=== PATIENT | female | born 1945 | race Caucasian/White ===

== ENCOUNTER 2022-03-18 13:39 | Outpatient (CLI) | payer OTHER, MEDICARE, SELFPAY ==
--- NOTE | 2022-03-18 14:00 | CRLHL7_ITS ---
For Patients: As a result of the Century Cures Act, medical imaging exams and procedure reports are released immediately into your electronic medical record. You may view this report before your referring provider. If you have questions, please contact your health care provider. INDICATION: Head injury. TECHNIQUE: CT of the head without contrast. Coronal and sagittal reformats are included. COMPARISON: Head CT from 08/01/2020 FINDINGS: No acute intracranial hemorrhage. No mass effect or midline shift. No hydrocephalus or extra-axial collections. Scattered white matter hypoattenuation, typical for chronic microvascular ischemic change No acute osseous abnormalities. Mastoid air cells and paranasal sinuses are clear. Normal soft tissues. IMPRESSION: IMPRESSION: 1. No acute intracranial abnormalities. Please note that all CT scans at this facility use dose modulation, iterative reconstruction, and/or weight-based dosing when appropriate to reduce radiation dose to as low as reasonably achievable. Dictated by Delbert Dawkins MD @ 03/18/2022 3:47:01 PM (Electronically Signed)
== END 2022-03-18 13:40 | disposition home or self-care (01) ==
PROVIDERS: PCP Family Medicine; Visit Provider Family Medicine
DX: S09.90XA Unspecified injury of head, initial encounter (principal); H57.04 Mydriasis
CPT/HCPCS: 70450

== ENCOUNTER 2023-01-17 17:04 | Emergency (ER) | payer MEDICARE, SELFPAY ==
[2023-01-17 17:15] VITALS: BP 164/114; PULSE 104; RESP 18; TEMP 37.1; O2SAT 96; BMI 28.3
--- NOTE | 2023-01-17 17:28 | CRLHL7_ITS ---
For Patients: As a result of the Cures Act, medical imaging exams and procedure reports are released immediately into your electronic medical record. You may view this report before your referring provider. If you have questions, please contact your health care provider. INDICATION: Trauma, right back and axillary pain. TECHNIQUE: Chest and right rib radiographs, 4 views. COMPARISON: Chest radiographs 08/01/2020. FINDINGS: Limited evaluation due to limited views of the ribs obtained. Mediastinum: Heart size and vasculature are normal in caliber and appearance. Mediastinum is within normal limits. Lungs: No focal consolidation. Pleura: No pneumothorax or pleural effusions. Bones: Detailed oblique images of the ribs demonstrate no acute fractures or bone lesions. Degenerative changes of the thoracic spine and acromioclavicular joints bilaterally. Upper Abdomen: Unremarkable. Chest wall: Surgical clips in the right axillary region. IMPRESSION: No acute displaced rib fractures. No pneumothorax. Dictated by James Florence MD @ 01/17/2023 6:39:56 PM (Electronically Signed)
--- NOTE | 2023-01-17 18:03 | ED.CHESTPAIN ---
HPI - Chest Pain General Date Seen: 01/17/23 Chief Complaint: Rib Pain Stated Complaint: Bad cough for weeks-now severe pain shoulder/chest Time Seen by Provider: 01/17/23 17:05 Source: patient and other Mode of arrival: ambulatory Limitations: no limitations History of Present Illness HPI narrative: Patient is a 77-year-old female presents here with her friend, she has a history of 24-48 hours of right-sided chest discomfort, that is associated with a coughing paroxysm, every time she coughs she gets intense pain that almost makes her want cry out. She reports that the pain initially came on with coughing. She wonders if she may have cracked a rib, she has a history of a chronic cough, that is gone on for quite some time. She is treating herself with albuterol, as she does have a history of asthma. She denies any frontal chest pain, any leg swelling, any hemoptysis, she is not tested herself for COVID at home. No past history of pulmonary emboli, coronary artery disease, or pneumothorax Related Data On Oral Contraceptives: No Home Medications Medication Instructions Recorded Confirmed diphenhydramine HCl 25 mg capsule 25 mg PO .as needed PRN 10/03/22 11/04/22 Previous Rx's Medication Instructions Recorded albuterol sulfate 90 mcg/actuation 2 puff inhalation Q4-6H PRN 05/17/22 aerosol inhaler shortness of breath or wheezing #8.5 grams metoprolol tartrate 25 mg tablet 12.5 mg (1/2 x 25 mg) PO BID #90 10/03/22 tabs lisinopril 10 mg tablet 10 mg PO QDAY #30 tabs 11/04/22 lorazepam 1 mg tablet 1 mg PO BID PRN anxiety #5 tabs 11/04/22 escitalopram oxalate 20 mg tablet 20 mg PO QDAY #90 tabs 11/18/22 Allergies Allergy/AdvReac Type Severity Reaction Status Date / Time Penicillins Allergy Intermediate Rash Verified 11/04/22 12:46 Sulfa Antibiotics Allergy Intermediate Rash Uncoded 11/04/22 12:46 Shellfish Allergy Allergy Unknown Uncoded 11/04/22 12:46 Review of Systems Status of ROS Reports: 10 or more systems reviewed and unremarkable except as noted in History and below [facility] Medical History Health care directive on file ?Z78.9 - Other specified health status (ICD-10) Wheeze ?R06.2 - Wheezing (ICD-10) Pneumonia ?J18.9 - Pneumonia, unspecified organism (ICD-10) Sinus infection ?J32.9 - Chronic sinusitis, unspecified (ICD-10) Sinus infection ?J32.9 - Chronic sinusitis, unspecified (ICD-10) History of Plaza's palsy (2011) ?Z86.69 - Personal history of other diseases of the nervous system and sense organs (ICD-10) Surgical History Status post partial hysterectomy (1971) ?Z90.711 - Acquired absence of uterus with remaining cervical stump (ICD-10) Status post carpal tunnel release ?Z98.890 - Other specified postprocedural states (ICD-10) Status post appendectomy ?Z90.49 - Acquired absence of other specified parts of digestive tract (ICD-10) History of lumpectomy of right breast (1999) ?Z98.890 - Other specified postprocedural states (ICD-10) Family History Son Coronary artery disease Brother Stroke Mother Diabetes Social History Narrative: SOCIAL HISTORY: . Lives with her daughter locally. She moved here 5 years ago from [facility]. 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 She used to work with my father at [employer] in [place] many years ago. Three children living. She lost her son recently. She is not sexually active. She exercises by walking and running 60s per week HABITS: No tobacco or recreational drug use. Rare alcohol use. FAMILY HISTORY: Son of myocardial infarction in his 50s. Brother with stroke in his 60s. Mother with diabetes. Smoking Status: Never smoker Little interest or pleasure in doing things: not at all Feeling down, depressed, or hopeless: not at all Exam Narrative Exam Narrative: She is seen with her friend in room 1, she appears to be in no distress, breathing normally and really no episodes of coughing. Her pupils are equal round reactive to light there is no scleral icterus redness there is no TMs are normal oropharynx normal her chest is good air entry bilaterally with no wheezing crackles I do not detect subcutaneous emphysema. Heart sounds no clicks murmurs or gallops, her lower legs show no swelling pitting edema negative Homans sign. Const Vital Signs, click to edit/add: Vital Signs - 24 hr 01/17/23 17:15 Temperature 98.8 F Pulse Rate [Right Pulse Oximeter] 104 H Respiratory Rate 18 Blood Pressure [Right Upper Arm] 164/114 H Pulse Oximetry 96 Oxygen Delivery Method Room Air Documenting provider has reviewed patient's vital signs: yes Course Course ED Course: Discussed with the patient her x-rays are negative I do not see any evidence of fracture pneumothorax and radiology is in agreement, initially wanted to give her some narcotic medication as the rib fracture/could still be a possibility but she declined this intervention. We talked about using something else like gabapentin and she declined this also does I we talked about using prednisone she agreed to this. I think this is reasonable and having her use Tylenol, and then follow-up with primary care I do not see any evidence on x-ray of pneumonia. Or anything worsening like this. Although I did have her consider other options. And she will come back and be seen. I do not think this is a pulmonary embolus kids the pain came on exactly when she was coughing, which is more consistent with a musculoskeletal type cause. Vital Signs Vital signs: Initial Vital Signs Temperature 98.8 F 01/17/23 17:15 Temperature Source Temporal Artery Scan 01/17/23 17:15 Pulse Rate 104 H 01/17/23 17:15 Respiratory Rate 18 01/17/23 17:15 Blood Pressure 164/114 H 01/17/23 17:15 Blood Pressure Mean 130 H 01/17/23 17:15 Blood Pressure Position Sitting 01/17/23 17:15 Pulse Oximetry 96 01/17/23 17:15 Oxygen Delivery Method Room Air 01/17/23 17:15 Vital Signs Temperature 98.8 F 01/17/23 17:15 Pulse Rate 104 H 01/17/23 17:15 Respiratory Rate 18 01/17/23 17:15 Blood Pressure 164/114 H 01/17/23 17:15 Pulse Oximetry 96 01/17/23 17:15 Oxygen Delivery Method Room Air 01/17/23 17:15 Temperature 98.8 F 01/17/23 17:15 Pulse Rate 104 H 01/17/23 17:15 Respiratory Rate 18 01/17/23 17:15 Blood Pressure 164/114 H 01/17/23 17:15 Pulse Oximetry 96 01/17/23 17:15 Oxygen Delivery Method Room Air 01/17/23 17:15 MDM - Chest Pain MDM Narrative Medical decision making narrative: During the evaluation of this patient I considered multiple differential diagnosis is. The life-threatening differential diagnosis include coronary disease/[place], pulmonary embolism, pneumothorax, pneumonia, and aortic dissection. Other differential diagnosis included but were not limited to pericarditis, myocarditis, chest wall pain, GERD, esophageal rupture, rib fracture contusion, pleurisy, as well as other etiologies. I do worry about a cracked rib, or pneumothorax we will do rib views along with a chest x-ray and I will get a COVID test. Little less worried about a pulmonary embolism given this came on with coughing, I think is more either muscular or skeletal. Medical Records Data Attestation: I reviewed the patient's medical records. Lab Data Attestation: I reviewed the patient's lab results. Labs: Lab Results 01/17/23 Range/Units 17:37 SARS-CoV-2 (PCR) Negative SARS-CoV-2 (Negative) Influenza Type A (PCR) Negative PCR FLU A (Negative) Influenza Type B (PCR) Negative PCR FLU B (Negative) RSV (PCR) Negative PCR RSV (Negative) Imaging Data Chest x-ray: Attestation: I have reviewed the pertinent imaging results. My impression: No evidence of pneumothorax, or infiltrate Radiologist's impression: Patient: GATITO GARCIA Facility:?[facility] Patient ID:?[id number] Site Patient ID:?[id number]. Site :?[id number] Study:?XRay Chest Right Ribs 2 views-01/17/2023 5:58:20 PM Ordering Physician:Panda Leyva Final Report: INDICATION: Trauma, right back and axillary pain. TECHNIQUE: Chest and right rib radiographs, 4 views. COMPARISON: Chest radiographs 08/01/2020. FINDINGS: Limited evaluation due to limited views of the ribs obtained. Mediastinum: Heart size and vasculature are normal in caliber and appearance. Mediastinum is within normal limits. Lungs: No focal consolidation. Pleura: No pneumothorax or pleural effusions. Bones: Detailed oblique images of the ribs demonstrate no acute fractures or bone lesions. Degenerative changes of the thoracic spine and acromioclavicular joints bilaterally. Upper Abdomen: Unremarkable. Chest wall: Surgical clips in the right axillary region. IMPRESSION: No acute displaced rib fractures. No pneumothorax. Dictated by James Florence MD @ 01/17/2023 6:39:56 PM (Electronic Signature) Patient: GATITO GARCIA Facility:?[facility] Patient ID:?[id number] Site Patient ID:?[id number]. Site :?[id number] Study:?XRay Chest 2 views-01/17/2023 5:57:06 PM Ordering Physician:Panda Leyva Final Report: INDICATION: Trauma, right back and axillary pain. TECHNIQUE: Chest and right rib radiographs, 4 views. COMPARISON: Chest radiographs 08/01/2020. FINDINGS: Limited evaluation due to limited views of the ribs obtained. Mediastinum: Heart size and vasculature are normal in caliber and appearance. Mediastinum is within normal limits. Lungs: No focal consolidation. Pleura: No pneumothorax or pleural effusions. Bones: Detailed oblique images of the ribs demonstrate no acute fractures or bone lesions. Degenerative changes of the thoracic spine and acromioclavicular joints bilaterally. Upper Abdomen: Unremarkable. Chest wall: Surgical clips in the right axillary region. IMPRESSION: No acute displaced rib fractures. No pneumothorax. Dictated by James Florence MD @ 01/17/2023 6:40:28 PM (Electronic Signature) Discharge Plan Discharge Clinical Impression: Cough, Chest pain Patient Disposition: Home w/ Parent or Adult Condition: Stable Instructions: Chest Pain (DC), Acute Cough (ED) Additional Instructions: As discussed with you continue the Tylenol we will try some prednisone to further help the issue with the coughing, I would like you to follow-up with Dr. Annetta hoffman early next week, no evidence of a collapsed lung, or rib fracture, but again the x-rays are little bit limited for just looking for displaced fractures. I gave you a prescription in [facility] Activity Level: Light activity Discharge Diet: Regular Prescriptions: No Action metoprolol tartrate 25 mg tablet 12.5 mg PO BID Qty: 90 1RF diphenhydramine HCl 25 mg capsule 25 mg PO .as needed PRN albuterol sulfate 90 mcg/actuation HFA aerosol inhaler 2 puff inhalation Q4-6H PRN (Reason: shortness of breath or wheezing) Qty: 8.5 0RF lorazepam 1 mg tablet 1 mg PO BID PRN (Reason: anxiety) Qty: 5 0RF lisinopril 10 mg tablet 10 mg PO QDAY Qty: 30 1RF escitalopram oxalate 20 mg tablet 20 mg PO QDAY Qty: 90 1RF Follow Up/Referrals: Jose Antonio Yancey MD [Primary Care Provider] - Stand Alone Forms: [employer] Info Instructions
[2023-01-17 18:19] LABS: PCR FLU A Negative PCR FLU A (Negative); PCR FLU B Negative PCR FLU B (Negative); PCR RSV Negative PCR RSV (Negative)
[2023-01-17 18:26] LABS: SARS PCR* Negative SARS-CoV-2 (Negative)
== END 2023-01-17 19:29 | disposition home or self-care (01) ==
PROVIDERS: Emergency Provider Family Medicine; PCP Family Medicine
DX: R07.9 Chest pain, unspecified (principal); R05.9 Cough, unspecified
CPT/HCPCS: 71046; 71100; 87631; 99284; 99285

== ENCOUNTER 2023-01-28 13:24 | Outpatient (CLI) | payer MEDICARE, SELFPAY | END 2023-01-28 13:25 | disposition home or self-care (01) | LOC: NFLDREF 13:25 | PROVIDERS: PCP Family Medicine; Visit Provider Family Medicine | DX: I10 Essential (primary) hypertension (principal) | CPT/HCPCS: 80048 ==

== ENCOUNTER 2023-12-31 13:20 | Outpatient (CLI) | payer MEDICARE, SELFPAY ==
--- OUTSIDE RECORDS SUMMARY | 2024-01-03 18:43 | XMS_ITS | Clinical Summary ---
Author Organization [employer] [facility] Address [place], [place] [address] Care Team Providers Care Maintenance And Operations Supervisor Name Role Phone Clinic, No Pcp Or Primary Care Provider Unavaila ble Social History Tobacco Use Types Packs/Day Years Used Date Smoking Tobacco: Never Assessed Sex and Gender Information Value Date Recorded Sex Assigned at Not on file Gender Identity Not on file Sexual Orientation Not on file Plan of Treatment Not on file Care Teams Maintenance And Operations Supervisor Relationship Specialty Start Date End Date Clinic, No Pcp Or . PCP - General 06/27/20
== END 2023-12-31 13:21 | disposition home or self-care (01) ==
LOC: AMB 01-03 18:42
PROVIDERS: PCP Family Medicine; Visit Provider Family Medicine
DX: R55 Syncope and collapse (principal); R53.1 Weakness
CPT/HCPCS: A0425; A0427

== ENCOUNTER 2023-12-31 13:52 | Emergency (ER) | payer MEDICARE, SELFPAY ==
[2023-12-31 13:58] VITALS: BP 160/121; PULSE 102; RESP 16; TEMP 36.8; O2SAT 100; BMI 27.4
--- NOTE | 2023-12-31 14:02 | ED.GENADULT ---
HPI - General Adult General Chief complaint: Weakness Stated complaint: Weakness, Fall Time Seen by Provider: 12/31/23 13:56 History of Present Illness HPI narrative: Patient is an 78 year white female with history of weakness when she tried to get up today. She reports that she has had a cold and runny nose and slight cough today. She has had no fever or rigors. She was feeling cold today. Denies rigors. Has had no chest pain, does not feel short of breath. She has had a history of reactive airway disease generalized anxiety and she feels ?help this is in a panic attack?. She does report some numbness feeling behind her arms bilaterally and legs bilaterally but that is gotten little better. She has a history of hypertension. No leg swelling or edema. The patient reports that when she got up she felt weak and had to kneel down. She an ambulance was called she was brought in by ambulance. Related Data Home Medications ?Medication ?Instructions ?Recorded ?Confirmed diphenhydramine HCl 25 mg capsule 25 mg PO .as needed PRN 10/03/22 01/28/23 Previous Rx's ?Medication ?Instructions ?Recorded escitalopram oxalate 20 mg tablet 20 mg PO QDAY #90 tabs 11/18/22 albuterol sulfate 90 mcg/actuation 2 puff inhalation Q4-6H PRN 01/28/23 aerosol inhaler shortness of breath or wheezing #8.5 grams lisinopril 10 mg tablet 10 mg PO QDAY #90 tabs 01/28/23 Allergies Allergy/AdvReac Type Severity Reaction Status Date / Time Penicillins Allergy Intermediate Rash Verified 12/31/23 13:57 Sulfa Antibiotics Allergy Intermediate Rash Uncoded 01/28/23 12:47 Shellfish Allergy Allergy Unknown Uncoded 01/28/23 12:47 Review of Systems Status of ROS: Reports: 6 or more systems reviewed and unremarkable except as noted in History and below [facility] Medical History Health care directive on file ?Z78.9 - Other specified health status (ICD-10) Wheeze ?R06.2 - Wheezing (ICD-10) Pneumonia ?J18.9 - Pneumonia, unspecified organism (ICD-10) Sinus infection ?J32.9 - Chronic sinusitis, unspecified (ICD-10) Sinus infection ?J32.9 - Chronic sinusitis, unspecified (ICD-10) History of Plaza's palsy (2012) ?Z86.69 - Personal history of other diseases of the nervous system and sense organs (ICD-10) Surgical History Status post partial hysterectomy (1971) ?Z90.711 - Acquired absence of uterus with remaining cervical stump (ICD-10) Status post carpal tunnel release ?Z98.890 - Other specified postprocedural states (ICD-10) Status post appendectomy ?Z90.49 - Acquired absence of other specified parts of digestive tract (ICD-10) History of lumpectomy of right breast (1999) ?Z98.890 - Other specified postprocedural states (ICD-10) Family History Son Coronary artery disease Brother Stroke Mother Diabetes Social History Narrative: SOCIAL HISTORY: . Lives with her daughter locally. She moved here 5 years ago from [facility]. 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 She used to work with my father at [employer] in [place] many years ago. Three children living. She lost her son recently. She is not sexually active. She exercises by walking and running 60s per week HABITS: No tobacco or recreational drug use. Rare alcohol use. FAMILY HISTORY: Son of myocardial infarction in his 50s. Brother with stroke in his 60s. Mother with diabetes. Smoking Status: Never smoker How often do you have a drink containing alcohol: never AUDIT-C Alcohol total score: 0 Non-prescribed substance use: denies use Little interest or pleasure in doing things: not at all Feeling down, depressed, or hopeless: not at all Exam Narrative: Exam Narrative: Objective: Patient is alert orient x3 no facial asymmetry Mouth slightly dry neck is supple chest is clear no rales or wheezing heart rhythm regular without murmur abdomen benign soft extremities are no edema neurologic nonfocal good peripheral perfusion noted. Const: Vital Signs, click to edit/add: Vital Signs - 24 hr 12/31/23 13:58 12/31/23 14:18 12/31/23 14:30 Temperature 98.2 F Pulse Rate 101 H 101 H Pulse Rate [Pulse Oximeter] 102 H Respiratory Rate 16 Blood Pressure [Le ft Upper Arm] 160/121 H Pulse Oximetry 100 100 99 Oxygen Delivery Me thod Room Air 12/31/23 14:45 12/31/23 15:00 12/31/23 15:15 Temperature Pulse Rate 102 H 98 102 H Pulse Rate [Pulse Oximeter] Respiratory Rate Blood Pressure [Le ft Upper Arm] Pulse Oximetry 99 100 99 Oxygen Delivery Me thod Course Vital Signs Vital signs: Initial Vital Signs Temperature 98.2 F 12/31/23 13:58 Temperature Source Temporal Artery Scan 12/31/23 13:58 Pulse Rate 102 H 12/31/23 13:58 Respiratory Rate 16 12/31/23 13:58 Blood Pressure 160/121 H 12/31/23 13:58 Blood Pressure Mean 134 H 12/31/23 13:58 Blood Pressure Position High-Fowlers 12/31/23 13:58 Pulse Oximetry 100 12/31/23 13:58 Oxygen Delivery Method Room Air 12/31/23 13:58 Vital Signs Temperature 98.2 F 12/31/23 13:58 Pulse Rate 102 H 12/31/23 13:58 Respiratory Rate 16 12/31/23 13:58 Blood Pressure 160/121 H 12/31/23 13:58 Pulse Oximetry 100 12/31/23 13:58 Oxygen Delivery Method Room Air 12/31/23 13:58 Temperature 98.2 F 12/31/23 13:58 Pulse Rate 102 H 12/31/23 15:15 Respiratory Rate 16 12/31/23 13:58 Blood Pressure 160/121 H 12/31/23 13:58 Pulse Oximetry 99 12/31/23 15:15 Oxygen Delivery Method Room Air 12/31/23 13:58 Medications Administered Medications: Discontinued Medications Generic Name Dose Route Start Last Admin Trade Name Freq PRN Reason Stop Dose Admin Sodium Chloride 500 mls @ 500 mls/hr 12/31/23 14:01 12/31/23 14:50 0.9 % Sodium Chloride 500 Ml IV 12/31/23 15:00 Infused .Q1H ONE Infusion Lorazepam 0.5 mg 12/31/23 15:06 12/31/23 15:14 Lorazepam 0.5 Mg Tablet PO 12/31/23 15:07 0.5 mg ONCE ONE Administration Medical Decision Making [facility] Narrative Medical decision making narrative: [age] year white female with a weakness episode, she had some bilateral arm and leg numbness, this certainly could be consistent with a panic type syndrome. But she has also had some upper respiratory symptoms. Looks like she had has had a history of pneumonia from her chart review. I think in a chest x-ray lab studies. Giving her IV fluid be appropriate. Will check an EKG and a point of care troponin. Must check urinalysis. Disposition pending findings above. Differential diagnosis of her symptoms would be just generalized weakness due to a viral infection, rule out pneumonia, rule out electrolyte imbalance. Rule out dehydration. Patient will get the above-mentioned studies disposition pending her clinical response. Will also check viral studies. Addendum 3:10 p.m.: The patient's EKG shows sinus tachycardia no acute ST T wave changes ventricular rate 103 beats per minute no change from 2020 EKG by my read. Patient has a chest x-ray by my read looks unremarkable. White count of 7880, hemoglobin 11.9, electrolyte profile negative, CRP less than 0.5, viral studies all negative. Point of care troponin negative. Urinalysis pending. Patient feels better after drive after some IV fluid. Will get her some oral fluid and she would like a little something for anxiety and will give her 0.5 mg Ativan orally, then will do a road test if she is doing well she could proceed home likely has a mild viral illness and certainly that can contribute to some her symptomology. She has no focal neurologic findings or stroke-like symptoms. Addendum 3:39 p.m.: The patient is able to walk without difficulty over she is having some tenderness to touch in her lateral aspect of her thigh on the right she has no back pain, I did a straight leg raise and that is unremarkable, she has no swelling in her leg consistent with a DVT. At this point would recommend ice Advil and time symptomatic management observation she was comfortable this as was the family they can stay and help her at her home, update her regular doctor next couple of days, return as needed Lab Data Labs: Lab Results 12/31/23 12/31/23 12/31/23 Range/Units 14:02 14:16 14:33 WBC 7.88 (4.50-11.00) K/uL RBC 4.14 (4.00-5.20) m/uL Hgb 11.9 L (12.0-16.0) gm/dL Hct 37.0 (33.0-51.0) % MCV 89 (80-100) fL MCH 29 (26-34) pg MCHC 32 (32-36) gm/dL RDW Coeff of Adrian 13.4 (11.5-15.5) % Plt Count 189 (140-440) K/uL Neut % (Auto) 63.7 (42.0-72.0) % Lymph % (Auto) 25.4 (20-44) % [place] % (Auto) 7.5 (0.0-11.0) % Eos % (Auto) 2.0 (0.0-7.0) % Baso % (Auto) 0.6 (0.0-3.0) % Neut # (Auto) 5.02 (1.7-7.0) K/uL Lymph # (Auto) 2.00 (0.90-2.90) K/uL [place] # (Auto) 0.60 (0.00-0.90) K/UL Eos # (Auto) 0.16 (0.00-0.50) K/uL Baso # (Auto) 0.05 (0.00-0.30) K/uL Abs Immat Gran (auto) 0.06 (0.00-0.30) K/uL Imm/Tot Granulo (auto) 0.8 % Sodium 140 (135-149) mmol/L Potassium 4.1 (3.6-5.1) mmol/L Chloride 110 (96-114) mmol/L Carbon Dioxide 22 (20-32) mmol/L Anion Gap 8 (7-15) mEq/L BUN 16 (7-30) mg/dL Creatinine 0.8 (0.5-1.5) mg/dL Estimated Creat Clear 33.86 Estimated GFR 74 ml/min Glucose 91 (60-115) mg/dL Lactate 1.7 (0.5-1.9) mmol/L Calcium 9.3 (8.4-10.6) mg/dL Total Bilirubin 0.5 (0.1-1.5) mg/dL Direct Bilirubin 0.2 (0.0-0.5) mg/dL AST 26 (12-35) U/L ALT 14 (4-35) U/L Alkaline Phosphatase 94 (40-150) U/L C-Reactive Protein < 0.5 L (0.5-1.0) mg/dL Total Protein 7.5 (6.0-8.3) g/dL Albumin 4.2 (3.3-5.0) g/dL Urine Color (Yellow) Urine Appearance (Clear) Urine pH (5.0-8.5) Ur Specific Tamiment (1.000-1.030) Urine Protein (Negative) Urine Glucose (UA) (Negative) Urine Ketones (Negative) Urine Blood (Negative) Urine Nitrite (Negative) Urine Bilirubin (Negative) Urine Urobilinogen (0.2-1.0) Ur Leukocyte Esterase (Negative) SARS-CoV-2 (PCR) Negative SARS-CoV-2 (Negative) Influenza Type A (PCR) Negative PCR FLU A (Negative) Influenza Type B (PCR) Negative PCR FLU B (Negative) RSV (PCR) Negative PCR RSV (Negative) POC Troponin I 0.00 L (0.01-0.04) ng/ml 12/31/23 Range/Units 14:44 WBC (4.50-11.00) K/uL RBC (4.00-5.20) m/uL Hgb (12.0-16.0) gm/dL Hct (33.0-51.0) % MCV (80-100) fL MCH (26-34) pg MCHC (32-36) gm/dL RDW Coeff of Adrian (11.5-15.5) % Plt Count (140-440) K/uL Neut % (Auto) (42.0-72.0) % Lymph % (Auto) (20-44) % [place] % (Auto) (0.0-11.0) % Eos % (Auto) (0.0-7.0) % Baso % (Auto) (0.0-3.0) % Neut # (Auto) (1.7-7.0) K/uL Lymph # (Auto) (0.90-2.90) K/uL [place] # (Auto) (0.00-0.90) K/UL Eos # (Auto) (0.00-0.50) K/uL Baso # (Auto) (0.00-0.30) K/uL Abs Immat Gran (auto) (0.00-0.30) K/uL Imm/Tot Granulo (auto) % Sodium (135-149) mmol/L Potassium (3.6-5.1) mmol/L Chloride (96-114) mmol/L Carbon Dioxide (20-32) mmol/L Anion Gap (7-15) mEq/L BUN (7-30) mg/dL Creatinine (0.5-1.5) mg/dL Estimated Creat Clear Estimated GFR ml/min Glucose (60-115) mg/dL Lactate (0.5-1.9) mmol/L Calcium (8.4-10.6) mg/dL Total Bilirubin (0.1-1.5) mg/dL Direct Bilirubin (0.0-0.5) mg/dL AST (12-35) U/L ALT (4-35) U/L Alkaline Phosphatase (40-150) U/L C-Reactive Protein (0.5-1.0) mg/dL Total Protein (6.0-8.3) g/dL Albumin (3.3-5.0) g/dL Urine Color Yellow (Yellow) Urine Appearance Clear (Clear) Urine pH 7.0 (5.0-8.5) Ur Specific Tamiment 1.015 (1.000-1.030) Urine Protein Negative (Negative) Urine Glucose (UA) Negative (Negative) Urine Ketones Negative (Negative) Urine Blood Negative (Negative) Urine Nitrite Negative (Negative) Urine Bilirubin Negative (Negative) Urine Urobilinogen 0.2 (0.2-1.0) Ur Leukocyte Esterase Negative (Negative) SARS-CoV-2 (PCR) (Negative) Influenza Type A (PCR) (Negative) Influenza Type B (PCR) (Negative) RSV (PCR) (Negative) POC Troponin I (0.01-0.04) ng/ml Discharge Plan Discharge Clinical Impression: Weakness, Acute viral syndrome, Acute thigh pain Patient Disposition: Home w/ Parent or Adult Condition: Improved Additional Instructions: Light activity, fluids, Tylenol as needed, recheck with regular doctor next 3-5 days, return to ED sooner problems concerns or worsening. Recommend Advil and Tylenol as needed for discomfort ice to the area the right lateral thigh that is been tender now at discharge. Return if problems or concerns. Activity Level: Light activity Discharge Diet: Regular Prescriptions: No Action diphenhydramine HCl 25 mg capsule 25 mg PO .as needed PRN albuterol sulfate 90 mcg/actuation HFA aerosol inhaler 2 puff inhalation Q4-6H PRN (Reason: shortness of breath or wheezing) Qty: 8.5 0RF lisinopril 10 mg tablet 10 mg PO QDAY Qty: 90 3RF escitalopram oxalate 20 mg tablet 20 mg PO QDAY Qty: 90 1RF Follow Up/Referrals: Jose Antonio Yancey MD [Primary Care Provider] - Stand Alone Forms: [facility] Info Instructions
--- NOTE | 2023-12-31 14:03 | CRLHL7_ITS ---
For Patients: As a result of the Century Cures Act, medical imaging exams and procedure reports are released immediately into your electronic medical record. You may view this report before your referring provider. If you have questions, please contact your health care provider. INDICATION: Cough TECHNIQUE: Chest 1 views. COMPARISON: 01/17/2023 FINDINGS: Cardiovasculature and mediastinum: Heart size is normal. Unremarkable mediastinum. Lungs and pleural spaces: Mildly increased peripheral interstitial linear opacities. No sign of pleural effusion. No pneumothorax. Bones and soft tissues: No significant findings. IMPRESSION: Mildly increased peripheral interstitial linear opacities, which may indicate mild pulmonary edema. Dictated by Reina Johnson MD @ 12/31/2023 2:56:25 PM (Electronically Signed)
[2023-12-31] MEDS: 0.9 % SODIUM CHLORIDE 500 ML 500 ML IV (14:10)
[2023-12-31 14:18] VITALS: PULSE 101; O2SAT 100
[2023-12-31 14:30] VITALS: PULSE 101; O2SAT 99
[2023-12-31 14:35] LABS: Basophils Absolute Auto 0.05 K/uL (0.00-0.30); Basophils Percent Auto 0.6 % (0.0-3.0); Eosinophils Absolute Auto 0.16 K/uL (0.00-0.50); Hemoglobin* 11.9 gm/dL (12.0-16.0); Immature Granulocytes Abs Auto 0.06 K/uL (0.00-0.30); Immature Granulocytes Pct Auto 0.8 %; Lymphocytes Percent Auto 25.4 % (20-44); Mean Corpuscular HGB Conc 32 gm/dL (32-36); Mean Corpuscular Hemoglobin 29 pg (26-34); Mean Corpuscular Volume 89 fL (80-100); Monocytes Percent Auto 7.5 % (0.0-11.0); Neutrophils Absolute Auto 5.02 K/uL (1.7-7.0); Neutrophils Percent Auto 63.7 % (42.0-72.0); Platelet Count* 189 K/uL (140-440); RDW Coefficient of Variation % 13.4 % (11.5-15.5); Red Blood Count 4.14 m/uL (4.00-5.20); White Blood Count* 7.88 K/uL (4.50-11.00)
[2023-12-31 14:36] LABS: Lactate* 1.7 mmol/L (0.5-1.9)
[2023-12-31 14:41] LABS: Slide Review Reflex No
[2023-12-31 14:45] VITALS: PULSE 102; O2SAT 99
--- OUTSIDE RECORDS SUMMARY | 2023-12-31 14:53 | XMS_ITS | Clinical Summary ---
Author Organization [employer] [facility] Address [place], [place] [address] Care Team Providers Care Slot Machine Department Floorperson Name Role Phone Clinic, No Pcp Or Primary Care Provider Unavaila ble Social History Tobacco Use Types Packs/Day Years Used Date Smoking Tobacco: Never Assessed Sex and Gender Information Value Date Recorded Sex Assigned at Not on file Gender Identity Not on file Sexual Orientation Not on file Plan of Treatment Not on file Care Teams Slot Machine Department Floorperson Relationship Specialty Start Date End Date Clinic, No Pcp Or . PCP - General 06/27/20
[2023-12-31 14:55] LABS: PCR FLU A Negative PCR FLU A (Negative); PCR FLU B Negative PCR FLU B (Negative); PCR RSV Negative PCR RSV (Negative); SARS PCR* Negative SARS-CoV-2 (Negative)
[2023-12-31 14:55] LABS: Chloride* 110 mmol/L (96-114); Sodium* 140 mmol/L (135-149)
[2023-12-31 14:56] LABS: Potassium* 4.1 mmol/L (3.6-5.1)
[2023-12-31 14:57] LABS: Albumin* 4.2 g/dL (3.3-5.0)
[2023-12-31 14:58] LABS: Creatinine* 0.8 mg/dL (0.5-1.5); Est. Creatinine Clearance* 33.86; Estimated Glomerular Filt Rate 74 ml/min
[2023-12-31 14:59] LABS: Anion Gap 8 mEq/L (7-15); Blood Urea Nitrogen* 16 mg/dL (7-30); Calcium* 9.3 mg/dL (8.4-10.6); Carbon Dioxide* 22 mmol/L (20-32); Glucose* 91 mg/dL (60-115); Total Protein* 7.5 g/dL (6.0-8.3)
[2023-12-31 15:00] VITALS: PULSE 98; O2SAT 100
[2023-12-31 15:00] LABS: Alanine Aminotransferase* 14 U/L (4-35); Alkaline Phosphatase* 94 U/L (40-150); Aspartate Amino Transferase* 26 U/L (12-35); Bilirubin Direct* 0.2 mg/dL (0.0-0.5); Bilirubin Total* 0.5 mg/dL (0.1-1.5)
[2023-12-31 15:02] LABS: C Reactive Protein* < 0.5 mg/dL (0.5-1.0)
[2023-12-31 15:12] LABS: Appearance Urine Clear (Clear); Bilirubin Urine Negative (Negative); Blood Urine Negative (Negative); Color Urine Yellow (Yellow); Glucose Urine Negative (Negative); Ketones Urine Negative (Negative); Leukocyte Esterase Urine Negative (Negative); Nitrite Urine Negative (Negative); Protein Urine Negative (Negative); Specific Gravity Urine 1.015 (1.000-1.030); Urobilinogen Urine 0.2 (0.2-1.0)
[2023-12-31] MEDS: LORazepam 0.5 MG TABLET PO (15:14)
[2023-12-31 15:15] VITALS: PULSE 102; O2SAT 99
[2023-12-31 15:46] LABS: RBC Urine 0-2 (0-2); Squamous Epithelial Cell Urine Few (None-Few); WBC Urine 0-2 (0-5)
== END 2023-12-31 15:49 | disposition home or self-care (01) ==
PROVIDERS: Emergency Provider Family Medicine; PCP Family Medicine
DX: R53.1 Weakness (principal); B34.9 Viral infection, unspecified; M79.651 Pain in right thigh
CPT/HCPCS: 36415; 71045; 80048; 80076; 81001; 83605; 84484; 85025; 86140; 87086; 87631; 93005; 94761; 99284; 99285; A9270; J7030

== ENCOUNTER 2024-01-12 05:46 | Emergency (ER) | payer MEDICARE, SELFPAY ==
[2024-01-12] VITALS (8 sets, daily range): BP systolic 176–214; BP diastolic 93–104; PULSE 79–95; RESP 20; TEMP 36.7; O2SAT 97–100; BMI 27.4
--- NOTE | 2024-01-12 06:07 | CRLHL7_ITS ---
For Patients: As a result of the Century Cures Act, medical imaging exams and procedure reports are released immediately into your electronic medical record. You may view this report before your referring provider. If you have questions, please contact your health care provider. INDICATION: Dental abscess TECHNIQUE: CT maxillofacial without contrast. COMPARISON: None FINDINGS: The patient is status post multiple dental fillings with multiple missing teeth. At the level of where tooth 3 would normally be there is a defect in the maxilla with trace fluid and mostly air (series 6, image 95). However, no periodontal fluid collections identified. No significant hyperenhancement within the adjacent tissues. Orbits are unremarkable. Mild mucosal thickening within the paranasal sinuses. Parotid and submandibular glands within normal limits although there is some motion at the level of the submandibular glands limiting evaluation. Prominent atherosclerotic calcification is present. Parapharyngeal space is grossly unremarkable. IMPRESSION: Defect at the position of tooth 3 which can represent recent extraction although the differential would include a small residual apical abscess. No subcutaneous/soft tissue abscess seen. Please note that all CT scans at this facility use dose modulation, iterative reconstruction, and/or weight-based dosing when appropriate to reduce radiation dose to as low as reasonably achievable. Dictated by Mao Pretty MD @ 01/12/2024 7:23:22 AM (Electronically Signed)
--- NOTE | 2024-01-12 06:07 | CRLHL7_ITS ---
For Patients: As a result of the Century Cures Act, medical imaging exams and procedure reports are released immediately into your electronic medical record. You may view this report before your referring provider. If you have questions, please contact your health care provider. INDICATION: Dental abscess TECHNIQUE: CT head without contrast. COMPARISON: Head CT 03/18/2022 FINDINGS: CSF spaces: Within normal limits for age. Brain parenchyma: The yañez-white differentiation is normal. No sign of mass, hemorrhage, or midline shift. Skull base and calvarium: The visualized paranasal sinuses and mastoid air cells demonstrate no acute or significant findings. The visualized orbits are grossly unremarkable. No skull fractures. Atherosclerosis. IMPRESSION: Unremarkable noncontrast head CT. Please note that all CT scans at this facility use dose modulation, iterative reconstruction, and/or weight-based dosing when appropriate to reduce radiation dose to as low as reasonably achievable. Dictated by Mao Pretty MD @ 01/12/2024 7:16:50 AM (Electronically Signed)
[2024-01-12] MEDS: ONDANSETRON 2 MG/ML inj 4 MG IVP (06:17)
[2024-01-12] MEDS: 0.9 % SODIUM CHLORIDE 500 ML 500 ML IV (06:17)
[2024-01-12] MEDS: MECLIZINE HCL 25 MG TABLET PO (06:17)
--- OUTSIDE RECORDS SUMMARY | 2024-01-12 06:18 | XMS_ITS | Clinical Summary ---
Author Organization [facility] Address [place], [place] [address] Care Team Providers Care Site Director Name Role Phone Clinic, No Pcp Or Primary Care Provider Unavaila ble Social History Tobacco Use Types Packs/Day Years Used Date Smoking Tobacco: Never Assessed Sex and Gender Information Value Date Recorded Sex Assigned at Not on file Gender Identity Not on file Sexual Orientation Not on file Plan of Treatment Not on file Care Teams Site Director Relationship Specialty Start Date End Date Clinic, No Pcp Or . PCP - General 06/27/20
[2024-01-12 06:23] LABS: Lactate* 1.5 mmol/L (0.5-1.9)
[2024-01-12 06:24] LABS: Basophils Absolute Auto 0.06 K/uL (0.00-0.30); Basophils Percent Auto 0.7 % (0.0-3.0); Eosinophils Absolute Auto 0.43 K/uL (0.00-0.50); Eosinophils Percent Auto 5.3 % (0.0-7.0); Hematocrit 38.6 % (33.0-51.0); Hemoglobin* 12.8 gm/dL (12.0-16.0); Immature Granulocytes Abs Auto 0.02 K/uL (0.00-0.30); Immature Granulocytes Pct Auto 0.2 %; Lymphocytes Percent Auto 18.7 % (20-44); Mean Corpuscular HGB Conc 33 gm/dL (32-36); Mean Corpuscular Hemoglobin 29 pg (26-34); Mean Corpuscular Volume 87 fL (80-100); Monocytes Percent Auto 9.2 % (0.0-11.0); Neutrophils Absolute Auto 5.39 K/uL (1.7-7.0); Neutrophils Percent Auto 65.9 % (42.0-72.0); Platelet Count* 232 K/uL (140-440); RDW Coefficient of Variation % 13.3 % (11.5-15.5); Red Blood Count 4.44 m/uL (4.00-5.20); White Blood Count* 8.18 K/uL (4.50-11.00)
[2024-01-12 06:26] LABS: Slide Review Reflex No
[2024-01-12 06:37] LABS: Albumin* 4.6 g/dL (3.3-5.0); Chloride* 106 mmol/L (96-114); Sodium* 140 mmol/L (135-149)
[2024-01-12 06:38] LABS: Potassium* 4.2 mmol/L (3.6-5.1)
[2024-01-12 06:40] LABS: Alkaline Phosphatase* 101 U/L (40-150); Anion Gap 8 mEq/L (7-15); Aspartate Amino Transferase* 37 U/L (12-35); Bilirubin Total* 0.4 mg/dL (0.1-1.5); Carbon Dioxide* 26 mmol/L (20-32); Creatinine* 0.8 mg/dL (0.5-1.5); Est. Creatinine Clearance* 33.86; Estimated Glomerular Filt Rate 74 ml/min; Total Protein* 8.3 g/dL (6.0-8.3)
[2024-01-12 06:41] LABS: Alanine Aminotransferase* 24 U/L (4-35); Blood Urea Nitrogen* 14 mg/dL (7-30); Calcium* 9.8 mg/dL (8.4-10.6); Glucose* 113 mg/dL (60-115)
--- NOTE | 2024-01-12 06:41 | ED.GENADULT ---
HPI - General Adult General Chief complaint: Dizziness/Vertigo Stated complaint: Body aches, nausea, weakness Time Seen by Provider: 01/12/24 05:58 Source: patient and family Mode of arrival: ambulatory Limitations: no limitations History of Present Illness HPI narrative: 6-year-old female presents the emergency department for evaluation of generalized weakness, body aches and feeling of dizziness. Woke up nauseated this morning at about 5:00 a.m.. No fever, no trauma or injury. She reports that she is currently being treated for a dental abscess and has been on antibiotics for the past 4 days. Reports oral pain secondary to the dental issue and has to eat soft foods but is still eating and drinking normally per her report. No new trauma or injury, no fall. The dizziness is difficult for her to classify. When I ask if it is vertigo like in nature, lightheadedness like in nature, fatigue or weakness, she has a lot of difficulty describing this to me. She does admit to some anxiety and wonders if that is a component of her symptoms. She did not try taking any medication to help with the dizziness. She took 2 aspirin and 2 Benadryl last night. Has not had any vomiting. Has not followed up with her primary care provider since her last ED visit 12 days ago. Those notes are reviewed. Extensive normal workup noted. No rashes, no dysuria, other than the tooth, lung no localizing symptoms of infection. She has not noticed any new drainage. The tooth area in question is the right 1st molar lower area. She has not take any blood thinners, she does not have a history of pulmonary emboli. Reports that her blood pressure medication was increased a couple of weeks ago from 10 mg to 20 mg. Denies any other recent changes. Past medical history notable for anxiety and hypertension. Only home medication is lisinopril 20 mg once daily. Nonsmoker, no other pertinent social history. Prior notes are reviewed. ROS is notable for the generalized symptoms as above including dizziness, URI, body aches, fatigue and weakness. Also positive for GI symptoms now with nausea, questionable neurological changes with the dizziness but more lightheaded than vertigo in nature. No visual changes. Related Data Home Medications ?Medication ?Instructions ?Recorded ?Confirmed clindamycin HCl 300 mg capsule 300 mg PO QID 01/12/24 01/12/24 lisinopril 10 mg tablet 10 mg PO DAILY 01/12/24 01/12/24 Previous Rx's ?Medication ?Instructions ?Recorded albuterol sulfate 90 mcg/actuation 2 puff inhalation Q4-6H PRN 01/05/24 aerosol inhaler shortness of breath or wheezing #8.5 grams meclizine 25 mg tablet 12.5 - 25 mg (0.5 - 1 x 25 mg) PO 01/12/24 BID PRN #10 tabs ondansetron 4 mg disintegrating 4 mg PO TID PRN nausea and 01/12/24 tablet vomiting #10 tabs Allergies Allergy/AdvReac Type Severity Reaction Status Date / Time Penicillins Allergy Intermediate Rash Verified 01/12/24 05:58 Sulfa (Sulfonamide Allergy Mild Hives Verified 01/12/24 05:58 Antibiotics) Shellfish Allergy Allergy Unknown Uncoded 01/05/24 13:50 [facility] Medical History Benign paroxysmal vertigo ?H81.10 - Benign paroxysmal vertigo, unspecified ear (ICD-10) Health care directive on file ?Z78.9 - Other specified health status (ICD-10) Wheeze ?R06.2 - Wheezing (ICD-10) Pneumonia ?J18.9 - Pneumonia, unspecified organism (ICD-10) Sinus infection ?J32.9 - Chronic sinusitis, unspecified (ICD-10) Sinus infection ?J32.9 - Chronic sinusitis, unspecified (ICD-10) History of Plaza's palsy (2011) ?Z86.69 - Personal history of other diseases of the nervous system and sense organs (ICD-10) Surgical History Status post partial hysterectomy (1971) ?Z90.711 - Acquired absence of uterus with remaining cervical stump (ICD-10) Status post carpal tunnel release ?Z98.890 - Other specified postprocedural states (ICD-10) Status post appendectomy ?Z90.49 - Acquired absence of other specified parts of digestive tract (ICD-10) History of lumpectomy of right breast (1999) ?Z98.890 - Other specified postprocedural states (ICD-10) Family History Son Coronary artery disease Brother Stroke Mother Diabetes Social History Narrative: SOCIAL HISTORY: . Lives with her daughter locally. She moved here [address] [facility]. 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 She used to work with my father at [employer] in [place] many years ago. Three children living. She lost her son recently. She is not sexually active. She exercises by walking and running 60s per week HABITS: No tobacco or recreational drug use. Rare alcohol use. FAMILY HISTORY: Son of myocardial infarction in his 50s. Brother with stroke in his 60s. Mother with diabetes. What is your current living situation?: I presently have a place to live Problems where you live: no known problems In the past 12 months, utilities in danger of being shut off: no In past 12 months, lack of transportation kept you from medical appts, meetings, work, or getting things needed for daily living: no In the past 12 mos, have been you worried that your food would run out before you had money to buy more?: sometimes true In the past 12 mos, the food you bought just didn't last and you didn't have money to buy more?: never true Smoking Status: Never smoker Second hand tobacco smoke exposure: No How often do you have a drink containing alcohol: never AUDIT-C Alcohol total score: 0 Non-prescribed substance use: denies use How often does anyone, including family, friends and others, physically hurt you: never How often does anyone, including family, friends and others, insult or talk down to you: never How often does anyone, including family, friends and others, threaten you with harm: never How often does anyone, including family, friends and others, scream or curse at you: rarely Little interest or pleasure in doing things: not at all Feeling down, depressed, or hopeless: not at all Exam Const: Vital Signs, click to edit/add: Vital Signs - 24 hr 01/12/24 05:54 01/12/24 06:25 01/12/24 06:26 Temperature 98.0 F Pulse Rate 85 Pulse Rate [Right Pulse Oximeter] 95 Respiratory Rate 20 20 Blood Pressure 176/93 H Blood Pressure [Ri ght Upper Arm] 214/104 H Pulse Oximetry 99 99 99 Oxygen Delivery Me thod Room Air 01/12/24 06:26 01/12/24 06:30 01/12/24 06:54 Temperature Pulse Rate 84 84 92 Pulse Rate [Right Pulse Oximeter] Respiratory Rate Blood Pressure Blood Pressure [Ri ght Upper Arm] Pulse Oximetry 98 98 98 Oxygen Delivery Me thod 01/12/24 07:00 01/12/24 07:19 01/12/24 07:30 Temperature Pulse Rate 82 85 79 Pulse Rate [Right Pulse Oximeter] Respiratory Rate Blood Pressure Blood Pressure [Ri ght Upper Arm] Pulse Oximetry 100 97 100 Oxygen Delivery Me thod Documenting provider has reviewed patient's vital signs: yes Common normals: alert Orientation/consciousness: Yes awake Other: Anxious but redirectable. Not very descriptive with her symptoms but appears well nourished and well hydrated. HENMT: Common normals: normocephalic and TM's normal bilaterally Head and scalp: normocephalic Face and sinus: normal facial exam Tympanic membrane: TM's normal bilaterally Mouth: oral and palatal mucosa normal Throat: posterior oropharynx normal Eye: Common normals: PERRL, EOMs intact bilaterally and conjunctivae normal General eye: normal appearance of both eyes Conjunctiva: conjunctiva(e) normal Pupil: PERRL Other: No nystagmus on exam Neck & C-Spine: Common normals: full ROM and no lymphadenopathy Resp: Common normals: normal respiratory effort, no use of accessory muscles and clear to auscultation bilaterally Effort & inspection: able to speak in complete sentences Auscultation: clear to auscultation bilaterally Cardio: Common normals: regular rate, regular rhythm, S1 normal heart sound, S2 normal heart sound and no murmurs Rate: regular rate Rhythm: regular rhythm Heart sounds: S1 normal and S2 normal GI: Common normals: Normal to inspection, nondistended, normoactive bowel sounds present, soft to palpation, non-tender, no hepatosplenomegaly and no masses Palpation: soft and no hepatosplenomegaly Extremity: Common normals: normal to inspection, full ROM, normal capillary refill and no pedal edema Neuro: Common normals: moves all extremities and no focal motor deficits Sensorium/orientation: awake and alert Cranial nerves: CN normal except as noted Speech: speech normal Motor exam: no tremor noted and no movement abnormalities noted Psych: Attitude: engaged Activity/motor behavior: appropriate eye contact Insight: fair Judgement: judgment good Skin: Common normals: no rashes or lesions noted General skin exam: no rashes or lesions noted Course Course ED Course: 78-year-old female with couple hours of nausea in the setting of 2 weeks of fatigue and URI symptoms. Extensively normal workup 12 days ago. Recent increased dose of lisinopril. Symptoms of reported dizziness but per description seems more fatigue and lightheadedness in nature. Nystagmus and symptoms were not easily reproducible on exam. Patient does seem a bit fixated on the notion that this is related to her dental abscess. Would recommend head CT, facial bone CT with contrast and repeat of blood work. At this time I am suspecting mostly post viral syndrome and some mild vertigo related to the viral illness. Cannot exclude stroke, dental abscess, sepsis, kidney failure or electrolyte abnormality secondary to increased dose of lisinopril, urinary infection, dehydration, amongst others. Will also recent lab for COVID and influenza and await findings. Will give 500 mL of normal saline, 4 mg of Zofran and 25 of meclizine. Await clinical response. I do not think that there are no findings consistent with a potential code stroke at this time and have elected not to initiate that cascade. Will re-evaluate after medications and treatment. Reevaluation(s) Time of Reevaluation #1: 07:39 Reevaluation #1: Patient is feeling less nauseated 1 hour after her Zofran. She had not yet taken her meclizine despite it being ordered an hour ago. When I am in the room I asked her to please take this so we can see if it works. She did so without complication. She still has not vomited. She is about nursing home through her fluid bolus. I reviewed the normal CT findings with patient. There is no evidence of abscess. She should complete her antibiotics as are prescribed. Counseled patient that I still think she is having a viral syndrome. This can take 3-4 weeks to fully resolve. She is not outside the level of normal. Her labs look very reassuring and she is keeping up well with fluids and caring for herself without difficulty. Her sister and mother also have vertigo. Repeat exam still showing a negative [place]-Hallpike and negative nystagmus. Her dizziness does not localize with any particular movement on exam even sitting forward or turning to either side is and equal response. Discussed her head CT findings which do confirm a slight amount of air into position 3 which is consistent with the dental extraction in that exact area she had 4 days ago. No other signs of abscesses or complications. She does seem flabergasted that there is nothing measurably wrong and I reassure her that the test we run in an emergency department may not show all potential conditions but it will show me any emergent once. I would recommend that she continue to push fluids, complete her antibiotics as prescribed and that she make a follow-up appointment in 1 week with her primary care provider. If she is not starting to feel better at this time I think additional testing including tick-borne illness, inflammatory conditions, and other avenues should be explored. I will give her prescription for meclizine and Zofran to help treat the nausea and have instructed her to stay active. She will continue her antihypertensives. Alarm symptoms reviewed and written instructions are provided. She verbalizes understanding and agreement. Vital Signs Vital signs: Initial Vital Signs Temperature 98.0 F 01/12/24 05:54 Temperature Source Temporal Artery Scan 01/12/24 05:54 Pulse Rate 95 01/12/24 05:54 Respiratory Rate 20 01/12/24 05:54 Blood Pressure 214/104 H 01/12/24 05:54 Blood Pressure Mean 140 H 01/12/24 05:54 Blood Pressure Position Sitting 01/12/24 05:54 Pulse Oximetry 99 01/12/24 05:54 Oxygen Delivery Method Room Air 01/12/24 05:54 Vital Signs Temperature 98.0 F 01/12/24 05:54 Pulse Rate 95 01/12/24 05:54 Respiratory Rate 20 01/12/24 05:54 Blood Pressure 214/104 H 01/12/24 05:54 Pulse Oximetry 99 01/12/24 05:54 Oxygen Delivery Method Room Air 01/12/24 05:54 Temperature 98.0 F 01/12/24 05:54 Pulse Rate 79 01/12/24 07:30 Respiratory Rate 20 01/12/24 06:25 Blood Pressure 176/93 H 01/12/24 06:25 Pulse Oximetry 100 01/12/24 07:30 Oxygen Delivery Method Room Air 01/12/24 05:54 Medications Administered Medications: Discontinued Medications Generic Name Dose Route Start Last Admin Trade Name Catarino PRN Reason Stop Dose Admin Sodium Chloride 500 mls @ 500 mls/hr 01/12/24 06:10 01/12/24 06:17 0.9 % Sodium Chloride 500 Ml IV 01/12/24 07:09 500 mls/hr .Q1H ONE Administration Meclizine HCl 25 mg 01/12/24 06:10 01/12/24 06:17 Meclizine Hcl 25 Mg Tablet PO 01/12/24 06:11 25 mg ONCE ONE Administration Ondansetron HCl 4 mg 01/12/24 06:10 01/12/24 06:17 Ondansetron 2 Mg/Ml Inj IVP 01/12/24 06:11 4 mg ONCE ONE Administration Medical Decision Making Lab Data Lab results reviewed: Yes I reviewed the patient's lab results Lab results narrative: Labs all extremely reassuring. No signs of dehydration, leukocytosis, elevated procalcitonin, elevated CRP, electrolyte abnormality, kidney disease, etc.. Labs: Lab Results 01/12/24 01/12/24 Range/Units 06:10 06:15 WBC 8.18 (4.50-11.00) K/uL RBC 4.44 (4.00-5.20) m/uL Hgb 12.8 (12.0-16.0) gm/dL Hct 38.6 (33.0-51.0) % MCV 87 (80-100) fL MCH 29 (26-34) pg MCHC 33 (32-36) gm/dL RDW Coeff of Adrian 13.3 (11.5-15.5) % Plt Count 232 (140-440) K/uL Neut % (Auto) 65.9 (42.0-72.0) % Lymph % (Auto) 18.7 L (20-44) % Carlton % (Auto) 9.2 (0.0-11.0) % Eos % (Auto) 5.3 (0.0-7.0) % Baso % (Auto) 0.7 (0.0-3.0) % Neut # (Auto) 5.39 (1.7-7.0) K/uL Lymph # (Auto) 1.50 (0.90-2.90) K/uL Carlton # (Auto) 0.80 (0.00-0.90) K/UL Eos # (Auto) 0.43 (0.00-0.50) K/uL Baso # (Auto) 0.06 (0.00-0.30) K/uL Abs Immat Gran (auto) 0.02 (0.00-0.30) K/uL Imm/Tot Granulo (auto) 0.2 % Sodium 140 (135-149) mmol/L Potassium 4.2 (3.6-5.1) mmol/L Chloride 106 (96-114) mmol/L Carbon Dioxide 26 (20-32) mmol/L Anion Gap 8 (7-15) mEq/L BUN 14 (7-30) mg/dL Creatinine 0.8 (0.5-1.5) mg/dL Estimated Creat Clear 33.86 Estimated GFR 74 ml/min Glucose 113 (60-115) mg/dL Lactate 1.5 (0.5-1.9) mmol/L Calcium 9.8 (8.4-10.6) mg/dL Total Bilirubin 0.4 (0.1-1.5) mg/dL AST 37 H (12-35) U/L ALT 24 (4-35) U/L Alkaline Phosphatase 101 (40-150) U/L C-Reactive Protein 0.8 (0.5-1.0) mg/dL Total Protein 8.3 (6.0-8.3) g/dL Albumin 4.6 (3.3-5.0) g/dL Procalcitonin < 0.03 L (<0.50) ng/mL Urine Color Yellow (Yellow) Urine Appearance Clear (Clear) Urine pH 7.0 (5.0-8.5) Ur Specific [place] 1.010 (1.000-1.030) Urine Protein Negative (Negative) Urine Glucose (UA) Negative (Negative) Urine Ketones Negative (Negative) Urine Blood Negative (Negative) Urine Nitrite Negative (Negative) Urine Bilirubin Negative (Negative) Urine Urobilinogen 0.2 (0.2-1.0) Ur Leukocyte Esterase Negative (Negative) Imaging Data CT scan - head: Attestation: I have reviewed the pertinent imaging results. My impression: Normal head CT, no abnormalities Radiologist's impression: IMPRESSION: Unremarkable noncontrast head CT. Facial bone CT: Attestation: I have reviewed the pertinent imaging results. My impression: Normal, no evidence of abscess. Radiologist's impression: IMPRESSION: Defect at the position of tooth 3 which can represent recent extraction although the differential would include a small residual apical abscess. No subcutaneous/soft tissue abscess seen. Physician: Note that this is consistent with a tooth she had pulled at position 3- 4 days ago. Discharge Plan Discharge Clinical Impression: Acute viral syndrome Patient Disposition: Home w/ Parent or Adult Condition: Improved Instructions: Viral Syndrome (ED) Additional Instructions: As we discussed, your head CT and facial bone CT show no signs of stroke, abscess or other complication. Your blood work is all very reassuring. There is no evidence of elevated white count, anemia, kidney disease, elevated inflammatory markers, elevated procalcitonin which could indicate a bacterial infection, urine infection, dehydration or any other abnormalities. This is very reassuring. Your dizziness seems to be related to a viral illness. It does not localize like a cardiac or neurological issue. I am hopeful that the meclizine and Zofran will continue to be helpful for you. Continue to push fluids and push nutrition as you are able and as you have been doing since things look so good. Remember that in the emergency department we cannot test for all conditions. Our labs will only detect emergent threats to your health. I would recommend that you make a follow-up appointment in 1 week with your primary care doctor to recheck things and do additional testing if you are not starting to improve. I would recommend Tylenol 1000 mg every 6 hours for body aches, headache and general malaise. I have given prescription for Zofran 4 mg up to 3 times daily as needed and have also recommended meclizine 25 mg twice daily for the next 2-3 days to help treat and prevent vertigo. Eating a little bit of extra salt may be helpful as well. He should come to emergency department if you of stroke-like symptoms, severe weakness or other emergent threats to your health. Activity Level: Activity as Tolerated Discharge Diet: Regular Prescriptions: New meclizine 25 mg tablet 12.5 - 25 mg PO BID PRNQty: 10 0RF ondansetron 4 mg tablet,disintegrating 4 mg PO TID PRN (Reason: nausea and vomiting) Qty: 10 0RF No Action albuterol sulfate 90 mcg/actuation HFA aerosol inhaler 2 puff inhalation Q4-6H PRN (Reason: shortness of breath or wheezing) Qty: 8.5 1RF clindamycin HCl 300 mg capsule 300 mg PO QID lisinopril 10 mg tablet 10 mg PO DAILY Follow Up/Referrals: Jose Antonio Yancey MD [Primary Care Provider] - Stand Alone Forms: [employer] Info Instructions
[2024-01-12 06:43] LABS: C Reactive Protein* 0.8 mg/dL (0.5-1.0)
[2024-01-12 06:58] LABS: Procalcitonin* < 0.03 ng/mL (<0.50)
[2024-01-12 07:24] LABS: Appearance Urine Clear (Clear); Bilirubin Urine Negative (Negative); Blood Urine Negative (Negative); Color Urine Yellow (Yellow); Glucose Urine Negative (Negative); Ketones Urine Negative (Negative); Leukocyte Esterase Urine Negative (Negative); Nitrite Urine Negative (Negative); Protein Urine Negative (Negative); Urobilinogen Urine 0.2 (0.2-1.0)
[2024-01-12 07:59] LABS: PCR FLU A Negative PCR FLU A (Negative); PCR FLU B Negative PCR FLU B (Negative); PCR RSV Negative PCR RSV (Negative); SARS PCR* Negative SARS-CoV-2 (Negative)
== END 2024-01-12 07:59 | disposition home or self-care (01) ==
PROVIDERS: Emergency Provider Family Medicine; PCP Family Medicine
DX: B34.9 Viral infection, unspecified (principal)
CPT/HCPCS: 36415; 70450; 70487; 80053; 81003; 83605; 84145; 85025; 86140; 87631; 94761; 96361; 96374; 99284; 99285; A9270; J2405; J7030; Q9967

== ENCOUNTER 2024-10-28 11:19 | Outpatient (CLI) | payer MEDICARE, SELFPAY | END 2024-10-28 11:20 | disposition home or self-care (01) | PROVIDERS: PCP Family Medicine; Visit Provider Family Medicine | DX: R10.31 Right lower quadrant pain (principal); Q63.2 Ectopic kidney; Z87.448 Personal history of other diseases of urinary system | CPT/HCPCS: 80053; 86140 ==

== ENCOUNTER 2024-11-02 11:30 | Outpatient (CLI) | payer MEDICARE, SELFPAY | END 2024-11-02 11:31 | disposition home or self-care (01) | LOC: NFLDREF 11-04 15:01 | PROVIDERS: PCP Family Medicine; Referring Provider Family Medicine; Visit Provider Family Medicine | DX: R39.9 Unspecified symptoms and signs involving the genitourinary system (principal); R10.31 Right lower quadrant pain | CPT/HCPCS: 87086 ==

== ENCOUNTER 2024-11-03 11:13 | Emergency (ER) | payer MEDICARE, SELFPAY ==
[2024-11-03] VITALS (14 sets, daily range): BP systolic 164–199; BP diastolic 90–99; PULSE 83–100; RESP 6–34; TEMP 36.6; O2SAT 98–100; BMI 29.2
--- OUTSIDE RECORDS SUMMARY | 2024-11-03 11:14 | XMS_ITS | Clinical Summary ---
Author Organization [facility] [facility] Address [address] [place] [id number] Care Team Providers Care [employer] Name Role Phone Clinic, No Pcp Or Primary Care Provider Unavaila ble Social History Tobacco Use Types Packs/Day Years Used Date Smoking Tobacco: Never Assessed Comments Unknown Sex and Gender Information Value Date Recorded Sex Assigned at Not on file Legal Sex Female 10:17 AM CDT Gender Identity Not on file Sexual Orientation Not on file Plan of Treatment Not on file Insurance [employer] [id number] [facility] MEDICARE ADVANTAGE MR Care Teams [employer] Relationship Specialty Start Date End Date Clinic, No Pcp Or . PCP - General 06/27/20
--- NOTE | 2024-11-03 11:54 | CRLHL7_ITS ---
For Patients: As a result of the Century Cures Act, medical imaging exams and procedure reports are released immediately into your electronic medical record. You may view this report before your referring provider. If you have questions, please contact your health care provider. INDICATION: Confused. TECHNIQUE: CT head without contrast. COMPARISON: CT brain December 2023 FINDINGS: No acute hemorrhage or intracranial infarct. No abnormal extra-axial fluid collection. Mild generalized parenchymal atrophy is present. Moderate white matter hypodensities are nonspecific and are likely related to chronic microvascular ischemic changes. Paranasal sinuses and mastoid air cells are well pneumatized. No calvarial fracture. Bilateral orbits show no acute findings. IMPRESSION: Chronic changes without acute intracranial abnormality. Please note that all CT scans at this facility use dose modulation, iterative reconstruction, and/or weight-based dosing when appropriate to reduce radiation dose to as low as reasonably achievable. Dictated by James Ortiz MD @ 11/03/2024 12:37:10 PM (Electronically Signed)
--- NOTE | 2024-11-03 11:55 | CRLHL7_ITS ---
For Patients: As a result of the Century Cures Act, medical imaging exams and procedure reports are released immediately into your electronic medical record. You may view this report before your referring provider. If you have questions, please contact your health care provider. INDICATION: Extreme fatigue TECHNIQUE: CT abdomen and pelvis acquired with 76 cc Isovue 370 IV contrast. COMPARISON: None. FINDINGS: Lower chest: Unremarkable. Liver: Region of hypodensity along the falciform ligament, likely focal fat. Gallbladder and bile ducts: Unremarkable. No biliary ductal dilation. Pancreas: Unremarkable. Spleen: Subcentimeter hypodense lesion in the spleen is too small to characterize, but may represent a small cyst or hemangioma (3/36). Adrenal glands: Unremarkable. No nodules. 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 No hydronephrosis or nephrolithiasis. GI tract: No obstruction. No evidence of significant bowel inflammation. Appendectomy. Vasculature: Abdominal aorta is normal in caliber. Moderate aortoiliac atherosclerosis. Mesenteric arteries are patent. Common origin of the celiac axis and SMA. Lymph nodes: No lymphadenopathy. Peritoneum/Abdominal Wall: Calcifications in the bilateral gluteal regions, likely related to prior trauma. No free air or significant free fluid. Pelvis: Hysterectomy. Bones: Mild degenerative disease of the spine. Grade 1 anterolisthesis of L4 on L5. IMPRESSION: No acute findings to explain symptoms. Please note that all CT scans at this facility use dose modulation, iterative reconstruction, and/or weight-based dosing when appropriate to reduce radiation dose to as low as reasonably achievable. Dictated by Alla Abebe MD @ 11/03/2024 12:42:00 PM (Electronically Signed)
--- NOTE | 2024-11-03 12:24 | ED_ITS ---
HPI - General Adult General Chief complaint: Abdominal Pain Stated complaint: abdominal pain Time Seen by Provider: 11/03/24 11:24 Source: patient Mode of arrival: ambulatory Limitations: no limitations History of Present Illness HPI narrative: 79-year-old female coming in today complaining of not feeling well. The patient states that she has right lower quadrant abdominal pain that is been going on for about a month. She describes as a sharp pain that comes and goes throughout the day. She denies any fevers or chills. However, she is most concerned about her fatigue. She states that she went from being very active to having significant fatigue, lack of energy and increased sleep throughout the day. She states that she continues to eat and drink throughout the day although slightly less than usual. She denies diarrhea or constipation. She denies urinary symptoms such as dysuria but does endorse urinary frequency that also comes and goes. Patient was seen in the clinic on Friday, 1 week ago, laboratory investigations were normal at that time. Her daughter is quite concerned because she has noticed that the patient is more foggy and confused. She babbles sometimes. This is all an acute change in the patient's normal behavior. No vomiting. Related Data Home Medications ?Medication ?Instructions ?Recorded ?Confirmed lisinopril 10 mg tablet 10 mg PO DAILY 11/03/2409/22 Previous Rx's ?Medication ?Instructions ?Recorded albuterol sulfate 90 mcg/actuation 2 puff inhalation Q 4-6H PRN 01/05/24 aerosol inhaler shortness of breath or wheez ing #8.5 grams lisinopril 20 mg tablet 20 mg PO QDAY #90 tabs 01/20 cephalexin 500 mg tablet 500 mg PO QID #40 tabs 10/28 Allergies Allergy/AdvReac Type Severity Reaction Status Date / Time Penicillins Allergy Intermediate Rash Verified 11/03/24 11:35 Sulfa (Sulfonamide Allergy Mild Hives Verified 11/03/24 11:35 Antibiotics) Shellfish Allergy Allergy Unknown Uncoded 10/28/24 10:38 Review of Systems Status of ROS: Reports: 10 or more systems reviewed and unremarkable except as noted in History and below [facility] Medical History Benign paroxysmal vertigo ?H81.10 - Benign paroxysmal vertigo, unspecified ear (ICD-10) Health care directive on file ?Z78.9 - Other specified health status (ICD-10) Wheeze ?R06.2 - Wheezing (ICD-10) Pneumonia ?J18.9 - Pneumonia, unspecified organism (ICD-10) Sinus infection ?J32.9 - Chronic sinusitis, unspecified (ICD-10) Sinus infection ?J32.9 - Chronic sinusitis, unspecified (ICD-10) History of Plaza's palsy (2011) ?Z86.69 - Personal history of other diseases of the nervous system and sense organs (ICD-10) Surgical History Status post partial hysterectomy (1971) ?Z90.711 - Acquired absence of uterus with remaining cervical stump (ICD-10) Status post carpal tunnel release ?Z98.890 - Other specified postprocedural states (ICD-10) Status post appendectomy ?Z90.49 - Acquired absence of other specified parts of digestive tract (ICD- 10) History of lumpectomy of right breast (1999) ?Z98.890 - Other specified postprocedural states (ICD-10) Family History Son Coronary artery disease Brother Stroke Mother Diabetes Social History Narrative: SOCIAL HISTORY: . Lives with her daughter locally. She moved here 5 years ago from [facility]. 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 She used to work with my father at [employer] in [place] many years ago. Three children living. She lost her son recently. She is not sexually active. She exercises by walking and running 60s per week HABITS: No tobacco or recreational drug use. Rare alcohol use. FAMILY HISTORY: Son of myocardial infarction in his 50s. Brother with stroke in his 60s. Mother with diabetes. What is your current living situation?: I presently have a place to live Problems where you live: no known problems In the past 12 months, utilities in danger of being shut off: no In past 12 months, lack of transportation kept you from medical appts, meetings, work, or getting things needed for daily living: no In the past 12 mos, have been you worried that your food would run out before you had money to buy more?: sometimes true In the past 12 mos, the food you bought just didn't last and you didn't have money to buy more?: never true Smoking Status: Never smoker Second hand tobacco smoke exposure: No How often do you have a drink containing alcohol: never AUDIT-C Alcohol total score: 0 Non-prescribed substance use: denies use How often does anyone, including family, friends and others, physically hurt you : never How often does anyone, including family, friends and others, insult or talk down to you: never How often does anyone, including family, friends and others, threaten you with harm: never How often does anyone, including family, friends and others, scream or curse at you: rarely Health Related Social Needs: food insecurity (Z59.41) and Other personal risk factors, not elsewhere classified (Z91.89) Exam Narrative: Exam Narrative: Well-nourished well-developed patient in no acute distress. Alert and oriented x3. Answers questions appropriately. Mood and affect are appropriate. Thoughts are goal oriented and rational. No tangential or magical thinking noted. Patient speaks in full sentences without needing to catch her breath. HEENT: Normocephalic atraumatic. Pupils are equally round reactive to light. Extraocular muscles are intact. Conjunctivae are moist without any icterus noted. Moist mucous membranes. Posterior pharynx is normal. Neck is soft without any lymphadenopathy or thyromegaly. No masses are appreciated. Cardiovascular: Heart is regular rate and rhythm S1 and S2 are present without any murmurs. Lungs: Clear to auscultation bilaterally no wheezes rhonchi or rales are appreciated. Patient takes deep breaths without any discomfort. Abdomen: Soft and nontender nondistended with normal bowel sounds. No guarding or rebound. No masses or organomegaly appreciated. Extremities: Bilateral lower extremities are without edema. Normal DP and PT pulses. Skin: Well perfused without any obvious rashes. Const: Vital Signs, click to edit/add: Vital Signs - 24 hr 11/03/24 11:27 11/03/24 12:10 11/03/24 12:36 Temperature 97.8 F Pulse Rate 90 100 Pulse Rate [Pulse Oximeter] 94 Respiratory Rate 20 15 34 H Blood Pressure Blood Pressure [Ri ght Upper Arm] 199/94 H Pulse Oximetry 98 99 98 Oxygen Delivery Me thod Room Air 11/03/24 12:38 11/03/24 12:45 11/03/24 13:00 Temperature Pulse Rate 94 83 89 Pulse Rate [Pulse Oximeter] Respiratory Rate 8 L 6 L 8 L Blood Pressure 181/99 H Blood Pressure [Ri ght Upper Arm] Pulse Oximetry 100 100 98 Oxygen Delivery Me thod 11/03/24 13:01 11/03/24 13:15 11/03/24 13:30 Temperature Pulse Rate 92 90 Pulse Rate [Pulse Oximeter] Respiratory Rate 8 L 8 L 9 L Blood Pressure 181/90 H Blood Pressure [Ri ght Upper Arm] Pulse Oximetry 98 98 Oxygen Delivery Me thod 11/03/24 13:31 Temperature Pulse Rate 92 Pulse Rate [Pulse Oximeter] Respiratory Rate 9 L Blood Pressure 171/93 H Blood Pressure [Ri ght Upper Arm] Pulse Oximetry 98 Oxygen Delivery Me thod Course Course ED Course: Reviewed patient's blood work that was done a week ago. She has normal CBC, normal chemistries, unremarkable LFTs, normal CRP and a normal UA. She had a repeat UA done yesterday which was normal. We did decide to repeat some of the blood work to see if there is any changes in the last week. I think it is also necessary to do a head an abdominal CT scan given her acute changes in mentation and continued abdominal pain. Blood work was unremarkable. Abdominal CT was normal. Head CT was normal. Vital Signs Vital signs: Initial Vital Signs Temperature 97.8 F 11/03/24 11:27 Temperature Source Temporal Artery Scan 11/03/24 11:27 Pulse Rate 94 11/03/24 11:27 Respiratory Rate 20 11/03/24 11:27 Blood Pressure 199/94 H 11/03/24 11:27 Blood Pressure Mean 129 H 11/03/24 11:27 Blood Pressure Position Sitting 11/03/24 11:27 Pulse Oximetry 98 11/03/24 11:27 Oxygen Delivery Method Room Air 11/03/24 11:27 Vital Signs Temperature 97.8 F 11/03/24 11:27 Pulse Rate 94 11/03/24 11:27 Respiratory Rate 20 11/03/24 11:27 Blood Pressure 199/94 H 11/03/24 11:27 Pulse Oximetry 98 11/03/24 11:27 Oxygen Delivery Method Room Air 11/03/24 11:27 Temperature 97.8 F 11/03/24 11:27 Pulse Rate 92 11/03/24 13:31 Respiratory Rate 9 L 11/03/24 13:31 Blood Pressure 171/93 H 11/03/24 13:31 Pulse Oximetry 98 11/03/24 13:31 Oxygen Delivery Method Room Air 11/03/24 11:27 Medical Decision Making MDM Narrative Medical decision making narrative: 79-year-old female presenting with abdominal pain, weakness and fatigue of unclear etiology. Looking through her records patient had similar concerns regarding fatigue and weakness last December. I do recommend she follow up outpatient for further management. No life-threatening pathology found at this time. Medical Records Medical records reviewed: Yes I reviewed the patient's medical records Lab Data Lab results reviewed: Yes I reviewed the patient's lab results Labs: Lab Results 11/03/24 Range/Units 12:15 WBC 8.54 (4.50-11.00) K/uL RBC 4.51 (4.00-5.20) m/uL Hgb 13.0 (12.0-16.0) gm/dL Hct 39.3 (33.0-51.0) % MCV 87 (80-100) fL MCH 29 (26-34) pg MCHC 33 (32-36) gm/dL RDW Coeff of Adrian 13.2 (11.5-15.5) % Plt Count 274 (140-440) K/uL Neut % (Auto) 63.0 (42.0-72.0) % Lymph % (Auto) 26.8 (20-44) % Christian % (Auto) 7.1 (0.0-11.0) % Eos % (Auto) 2.3 (0.0-7.0) % Baso % (Auto) 0.6 (0.0-3.0) % Neut # (Auto) 5.37 (1.7-7.0) K/uL Lymph # (Auto) 2.29 (0.90-2.90) K/uL Christian # (Auto) 0.60 (0.00-0.90) K/UL Eos # (Auto) 0.20 (0.00-0.50) K/uL Baso # (Auto) 0.05 (0.00-0.30) K/uL Abs Immat Gran (auto) 0.02 (0.00-0.30) K/uL Imm/Tot Granulo (auto) 0.2 % Sodium 141 (135-149) mmol/L Potassium 4.9 (3.6-5.1) mmol/L Chloride 108 (96-114) mmol/L Carbon Dioxide 27 (20-32) mmol/L Anion Gap 6 L (7-15) mEq/L BUN 11 (7-30) mg/dL Creatinine 0.7 (0.5-1.5) mg/dL Estimated Creat Clear 33.29 Estimated GFR 87 ml/min Glucose 106 (60-115) mg/dL Calcium 10.2 (8.4-10.6) mg/dL Magnesium 2.0 (1.5-2.6) mg/dL Total Bilirubin 0.4 (0.1-1.5) mg/dL Direct Bilirubin 0.2 (0.0-0.5) mg/dL AST 33 (12-35) U/L ALT 22 (4-35) U/L Alkaline Phosphatase 93 (40-150) U/L Total Creatine Kinase 52 (41-117) U/L Troponin I < 0.01 (0.01-0.04) ng/mL C-Reactive Protein < 0.5 L (0.5-1.0) mg/dL Total Protein 8.6 H (6.0-8.3) g/dL Albumin 4.6 (3.3-5.0) g/dL Procalcitonin < 0.03 L (<0.50) ng/mL TSH 2.250 (0.270-4.20) uIU/mL Monoscreen Negative (Negative) Imaging Data CT scan - abdomen: Attestation: I have reviewed the pertinent imaging results. Radiologist's impression: TECHNIQUE: CT abdomen and pelvis acquired with 76 cc Isovue 370 IV contrast. COMPARISON: None. FINDINGS: Lower chest: Unremarkable. Liver: Region of hypodensity along the falciform ligament, likely focal fat. Gallbladder and bile ducts: Unremarkable. No biliary ductal dilation. Pancreas: Unremarkable. Spleen: Subcentimeter hypodense lesion in the spleen is too small to characterize, but may represent a small cyst or hemangioma (3/36). Adrenal glands: Unremarkable. No nodules. 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 No hydronephrosis or nephrolithiasis. GI tract: No obstruction. No evidence of significant bowel inflammation. Appendectomy. Vasculature: Abdominal aorta is normal in caliber. Moderate aortoiliac atherosclerosis. Mesenteric arteries are patent. Common origin of the celiac axis and SMA. Lymph nodes: No lymphadenopathy. Peritoneum/Abdominal Wall: Calcifications in the bilateral gluteal regions, likely related to prior trauma. No free air or significant free fluid. Pelvis: Hysterectomy. Bones: Mild degenerative disease of the spine. Grade 1 anterolisthesis of L4 on L5. IMPRESSION: No acute findings to explain symptoms. CT scan - head: Attestation: I have reviewed the pertinent imaging results. Radiologist's impression: TECHNIQUE: CT head without contrast. COMPARISON: CT brain December 2023 FINDINGS: No acute hemorrhage or intracranial infarct. No abnormal extra-axial fluid collection. Mild generalized parenchymal atrophy is present. Moderate white matter hypodensities are nonspecific and are likely related to chronic microvascular ischemic changes. Paranasal sinuses and mastoid air cells are well pneumatized. No calvarial fracture. Bilateral orbits show no acute findings. IMPRESSION: Chronic changes without acute intracranial abnormality. Discharge Plan Discharge Clinical Impression: Fatigue, Elevated blood pressure reading, Abdominal pain Patient Disposition: Home, Self-Care Condition: Stable Additional Instructions: Your workup today did not reveal evidence of any life-threatening conditions. I do recommend you follow-up with your primary care provider and potentially Neurology for further management. Blood pressure was quite elevated in the ED today. Recommend recheck blood pressures at home and follow up with primary care provider to discuss this. I do not think this is related to the symptoms that you are having. Prescriptions: No Action albuterol sulfate 90 mcg/actuation HFA aerosol inhaler 2 puff inhalation Q4-6H PRN (Reason: shortness of breath or wheezing) Qty: 8.5 1RF lisinopril 20 mg tablet 20 mg PO QDAY Qty: 90 3RF cephalexin 500 mg tablet 500 mg PO QID Qty: 40 0RF lisinopril 10 mg tablet 10 mg PO DAILY Follow Up/Referrals: Jose Antonio Yancey MD [Primary Care Provider, Family Practice] Stand Alone Forms: [facility] Inst[facility]
[2024-11-03 12:25] LABS: Hematocrit 39.3 % (33.0-51.0); Hemoglobin* 13.0 gm/dL (12.0-16.0); Immature Granulocytes Abs Auto 0.02 K/uL (0.00-0.30); Immature Granulocytes Pct Auto 0.2 %; Lymphocytes Absolute Auto 2.29 K/uL (0.90-2.90); Mean Corpuscular HGB Conc 33 gm/dL (32-36); Mean Corpuscular Hemoglobin 29 pg (26-34); Mean Corpuscular Volume 87 fL (80-100); RDW Coefficient of Variation % 13.2 % (11.5-15.5); Red Blood Count 4.51 m/uL (4.00-5.20); White Blood Count* 8.54 K/uL (4.50-11.00)
[2024-11-03 12:26] LABS: Slide Review Reflex No
[2024-11-03 12:39] LABS: Albumin* 4.6 g/dL (3.3-5.0); Chloride* 108 mmol/L (96-114)
[2024-11-03 12:40] LABS: Potassium* 4.9 mmol/L (3.6-5.1); Sodium* 141 mmol/L (135-149)
[2024-11-03 12:42] LABS: Blood Urea Nitrogen* 11 mg/dL (7-30); Creatinine* 0.7 mg/dL (0.5-1.5); Est. Creatinine Clearance* 33.29; Estimated Glomerular Filt Rate 87 ml/min
[2024-11-03 12:43] LABS: Alanine Aminotransferase* 22 U/L (4-35); Alkaline Phosphatase* 93 U/L (40-150); Anion Gap 6 mEq/L (7-15); Aspartate Amino Transferase* 33 U/L (12-35); Bilirubin Direct* 0.2 mg/dL (0.0-0.5); Bilirubin Total* 0.4 mg/dL (0.1-1.5); Calcium* 10.2 mg/dL (8.4-10.6); Carbon Dioxide* 27 mmol/L (20-32); Creatine Kinase* 52 U/L (41-117); Glucose* 106 mg/dL (60-115); Mono Screen* Negative (Negative); Total Protein* 8.6 g/dL (6.0-8.3)
[2024-11-03 13:38] LABS: Procalcitonin* < 0.03 ng/mL (<0.50)
--- NOTE | 2024-11-03 14:12 | PC.NURSE ---
Patient asked if she should continue her Keflex antibiotic. Per Dr. Dotson, patient can stop the antibiotic as urine did not show infection from previous urinalysis. Patient will follow up with PCP.
== END 2024-11-03 14:14 | disposition home or self-care (01) ==
PROVIDERS: Emergency Provider Family Medicine; PCP Family Medicine
DX: R10.9 Unspecified abdominal pain (principal); R53.83 Other fatigue; R03.0 Elevated blood-pressure reading, without diagnosis of hypertension
CPT/HCPCS: 36415; 70450; 74177; 80048; 80076; 82550; 83735; 84145; 84443; 84484; 85025; 86140; 86308; 93005; 99284; 99285; Q9967